=== PATIENT | female | born 1970 | race Caucasian/White ===

== ENCOUNTER 2018-12-03 06:44 | Day surgery (SDC) | payer BC ==
[~2018-12-03] VITALS: Ht 154.9 cm; Wt 68.2 kg
[~2018-12-03 06:44] MED LIST: IBUP400 PO; LOSA50 PO; Once Daily1 EACH; Percocet 5-3251 EACH PO
--- NOTE | 2018-12-03 06:59 | NUR ---
History, Chart, Medications and Allergies reviewed before start of procedure. Patient confirms NPO status and agrees with scheduled surgery. Reports taking all of colon prep with clear results. Patient States Post-Procedure ride home has been arranged with her , [place].
--- NOTE | 2018-12-03 07:30 | NUR ---
12/03/18 0770 Deangelo Poole History, Chart, Medications and Allergies reviewed before start of procedure.MONITOR INTACT WITH CONTINUOUS PULSE OXIMETRY AND INTERMITTENT BP.3-LEAD EKG REVIEWED WITH PHYSICIAN PRIOR TO START OF PROCEDURE.O2 VIA N/C INTACT THROUGHOUT SEDATION/PROCEDURE. Patient confirms NPO status and agrees with scheduled surgery.PATIENT DETERMINED TO BE ASA APPROPRIATE FOR PROPOFOL SEDATION PRIOR TO START OF PROCEDURE BY DR. HERNDON.
--- NOTE | 2018-12-03 08:41 | NUR ---
RECEIVED REPORT FROM ENDO RN ([place]). PT IS SLEEPING AT THIS TIME. VSS. MAN AT BEDSIDE.
--- NOTE | 2018-12-03 08:56 | NUR ---
PT IS AWAKE SITTING UP. DR HERNDON HAS SPOKEN TO PT. RN CALLED IN OMEPRAZOLE PER MD TO SAFEWAY IN [facility].
--- NOTE | 2018-12-03 09:10 | NUR ---
Discharge instructions reviewed with patient. Patient verbalizes understanding. Copy given to patient to take home. PT HAS NO QUESTIONS OR CONCERNS WITH D/C. PT TOLERATED WATER WO DIFF. PT STABLE. VSS. PT HAS D/C PAPERWORK. Patient States Post-Procedure ride home has been arranged. PT HAS ALL PERSONAL BELONGINGS. PT GETTING DRESSED. RX CALLED IN TO PHARMACY. PT AWARE NEED TO STOP TAKING IBUPROFEN AT HOME. Discharged via wheelchair to private car for ride home.
== END 2018-12-03 23:00 | disposition home or self-care (01) ==
LOC: ORSCMMR 06:44 → ORD 08:00 → ORSCMMR 08:00
PROVIDERS: Internal Medicine Gastroenterology
PROC: 0DB58ZX Excision of Esophagus, Via Natural or Artificial Opening Endoscopic, Diagnostic (ICD-10-PCS; principal; 2018-12-03 08:00)
PROC: 0DBE8ZX Excision of Large Intestine, Via Natural or Artificial Opening Endoscopic, Diagnostic (ICD-10-PCS; principal; 2018-12-03 08:00)
PROC: 0DB68ZX Excision of Stomach, Via Natural or Artificial Opening Endoscopic, Diagnostic (ICD-10-PCS; principal; 2018-12-03 08:00)
PROC: 0DB98ZX Excision of Duodenum, Via Natural or Artificial Opening Endoscopic, Diagnostic (ICD-10-PCS; principal; 2018-12-03 08:00)
DX: K92.1 Melena (principal); R19.7 Diarrhea, unspecified; I10 Essential (primary) hypertension; K21.9 Gastro-esophageal reflux disease without esophagitis; K25.9 Gastric ulcer, unspecified as acute or chronic, without hemorrhage or perforation; K57.30 Diverticulosis of large intestine without perforation or abscess without bleeding; K64.8 Other hemorrhoids
CPT/HCPCS: 88305; 88342; J2704; J7120

== ENCOUNTER 2020-01-18 11:32 | Inpatient (IN) | payer BC ==
[~2020-01-18] VITALS: Ht 154.9 cm; Wt 71.7 kg
[~2020-01-18 11:32] MED LIST changes: -LOSA50 PO
[2020-01-18 12:10] LABS: Calcium, Ionized (POC) 1.03 mmol/L (1.10-1.46); Chloride (POC) 104 mmol/L (98-108); Creatinine (POC) 0.5 mg/dL (0.6-1.0); Glucose (ISTAT POC) 120 mg/dL (70-99); Hemoglobin (POC) 13.6 g/dL (12.0-16.0); Potassium (POC) 3.7 mmol/L (3.5-5.5); Sodium (POC) 138 mmol/L (135-148); Total CO2 (POC) 22 mmol/L (21-32)
[2020-01-18 12:17] LABS: BASOPHILS ABSOLUTE AUTO 0.05 K/mm3 (0.00-0.23); BASOPHILS PERCENT AUTO 1 % (0-2); EOSINOPHILS ABSOLUTE AUTO 0.04 K/mm3 (0.00-0.68); EOSINOPHILS PERCENT AUTO 1 % (0-6); Hematocrit 36.5 % (33.0-51.0); Hemoglobin 12.3 g/dL (11.5-16.0); IMMATURE GRAN ABSOLUTE AUTO 0.01 K/mm3 (0.00-0.10); IMMATURE GRAN PERCENT AUTO 0 % (0-1); LYMPHOCYTES ABSOLUTE AUTO 2.04 K/mm3 (0.84-5.20); LYMPHOCYTES PERCENT AUTO 25 % (21-46); MONOCYTES ABSOLUTE AUTO 0.45 K/mm3 (0.16-1.47); MONOCYTES PERCENT AUTO 6 % (4-13); Mean Corpuscular HGB 32.3 pg (26.0-34.0); Mean Corpuscular HGB Conc 33.7 g/dL (31.5-36.5); Mean Corpuscular Volume 96 fL (80-100); Mean Platelet Volume 9.6 fL (9.1-12.4); NEUTROPHILS ABSOLUTE AUTO 5.49 K/mm3 (1.96-9.15); NEUTROPHILS PERCENT AUTO 68 % (41-73); Platelet Count 286 K/mm3 (150-400); RDW Coefficient Variation 12.1 % (11.7-14.2); RDW Standard Deviation 42.2 fL (35.1-46.3); Red Blood Cell Count 3.81 M/mm3 (3.80-5.20); White Blood Cell Count 8.08 K/mm3 (4.00-11.30)
[2020-01-18 12:33] LABS: International Normalized Ratio 0.98; Prothrombin Time Results 10.5 Sec (9.7-11.5)
[2020-01-18] MEDS ORDERED: KEFLEX500 MG PO (14:27)
[2020-01-18] MEDS ORDERED: Norco 5-325 Ta1 EACH PO (14:27)
[2020-01-18 17:20] LABS: Calcium, Ionized (POC) 1.03 mmol/L (1.10-1.46); Chloride (POC) 102 mmol/L (98-108); Creatinine (POC) 0.6 mg/dL (0.6-1.0); Glucose (ISTAT POC) 104 mg/dL (70-99); Hemoglobin (POC) 11.9 g/dL (12.0-16.0); Potassium (POC) 3.4 mmol/L (3.5-5.5); Sodium (POC) 138 mmol/L (135-148); Total CO2 (POC) 22 mmol/L (21-32)
[2020-01-18] MEDS ORDERED: TIZA4 PO (17:44)
[2020-01-18] MEDS ORDERED: LOSA50 PO (17:45)
[2020-01-18] MEDS ORDERED: PREG75 PO (17:49)
[2020-01-18] MEDS ORDERED: Aspir 8181 MG PO (17:50)
[2020-01-18] MEDS ORDERED: DICLOFENAC SOD100 G1 TOP (17:51)
[2020-01-18] MEDS ORDERED: Hair, Skin & N1 EACH PO (21:16)
[2020-01-19 05:33] LABS: BASOPHILS ABSOLUTE AUTO 0.02 K/mm3 (0.00-0.23); BASOPHILS PERCENT AUTO 0 % (0-2); EOSINOPHILS PERCENT AUTO 0 % (0-6); Hematocrit 31.3 % (33.0-51.0); Hemoglobin 10.4 g/dL (11.5-16.0); IMMATURE GRAN ABSOLUTE AUTO 0.03 K/mm3 (0.00-0.10); IMMATURE GRAN PERCENT AUTO 0 % (0-1); LYMPHOCYTES ABSOLUTE AUTO 1.84 K/mm3 (0.84-5.20); LYMPHOCYTES PERCENT AUTO 18 % (21-46); MONOCYTES ABSOLUTE AUTO 0.46 K/mm3 (0.16-1.47); MONOCYTES PERCENT AUTO 5 % (4-13); Mean Corpuscular HGB 32.4 pg (26.0-34.0); Mean Corpuscular HGB Conc 33.2 g/dL (31.5-36.5); Mean Corpuscular Volume 98 fL (80-100); Mean Platelet Volume 9.7 fL (9.1-12.4); NEUTROPHILS PERCENT AUTO 77 % (41-73); Platelet Count 266 K/mm3 (150-400); RDW Coefficient Variation 12.3 % (11.7-14.2); RDW Standard Deviation 44.5 fL (35.1-46.3); Red Blood Cell Count 3.21 M/mm3 (3.80-5.20); White Blood Cell Count 10.15 K/mm3 (4.00-11.30)
[2020-01-19 06:06] LABS: Anion Gap 10 mmol/L (6-16); Blood Urea Nitrogen 14 mg/dL (8-24); Bun/Creatinine Ratio 18.5 (12.0-20.0); CO2, Blood 24 mmol/L (21-32); Calcium, Blood 8.2 mg/dL (8.5-10.1); Chloride, Blood 103 mmol/L (98-108); Creatinine, Blood 0.76 mg/dL (0.40-1.00); Glomerular Filtration Rate >60 (60-); Glucose, Blood 140 mg/dL (70-99); Potassium, Blood 3.5 mmol/L (3.5-5.5); Sodium, Blood 137 mmol/L (136-145)
--- NOTE | 2020-01-19 06:06 | NUR ---
SHIFT SUMMARY PT WAS A NEW ADMIT DURING THE NIGHT, ARRIVING ON THE FLOOR AT 2049. SHE WAS ADMITTED FOR EPISTAXIS AND HYPOXIA. PT HAD A SEVERE NOSEBLEED AND RHINO ROCKETS WERE PLACED IN ED. ON ADMISSION, PT REPORTS THAT SHE CAN STILL FEEL DRAINAGE DOWN HER THROAT WITH THE RHINO ROCKETS IN PLACE. SHE IS ALSO REPORTING BURNING AND PRESSURE IN HER FACE. TYLENOL DID NOT RELIEVE HER PAIN, THOUGH HER PRN ZANAFLEX DID HELP FOR A FEW HOURS. SHE WAS MEDICATED TWICE WITH EACH MEDICATION. PT IS ON 2L OF O2 VIA NC IN THE MOUTH WHILE SLEEPING DUE TO DESATTING TO THE 80S WHEN ASLEEP. VITAL SIGNS OTHERWISE STABLE. PT WAS MEDICATED ONCE FOR NAUSEA WITH PRN PO ZOFRAN. NO C/O SOB. NO OTHER ACUTE CHANGES NOTED SINCE ADMISSION. WILL CONTINUE TO MONITOR AND TREAT PER EMAR UNTIL HAND OFF TO DAY SHIFT RN.
--- NOTE | 2020-01-19 08:12 | NUR ---
Throat soreness/Sinus pain and Headache Discussed with Dr. Medina over the phone regarding the above listed symptoms patient is complaining about. Received telephone order for Percocet 5/325 Q6H PRN and Chlorseptic spray as needed.
--- NOTE | 2020-01-19 11:17 | NUR ---
Inflammation in throat Discuss the complaint above with Dr. Medina, received a verbal order for one time does of Toradol 30 mg IV.
--- NOTE | 2020-01-19 11:26 | NUR ---
Continuous Biox Patient is taking narcotics and had an episode in the ER where she desaturated into the 80%'s O2. Discussed with Dr. Medina, Continuous biox ordered.
--- NOTE | 2020-01-19 14:50 | NUR ---
L side Rhinojet Removed Patient requesting rhinojet be removed from L nostril d/t discomfort and intense pressure/pain in sinus/throat/head despite medication for pain. L rhinojet appears to be partially exposed approximately [address] Medina informed. This RN assisted Dr. Medina at bedside with removal of rhinojet from L nostril. Approximately 8 cc air removed prior to pulling rhinojet out. Clear slimy mucus noted absent of blood/red color. Patient tolerated procedure well and stated some relief of pressure. No bleeding noted. Patient has been explained that rhinojet to R side will be kept in until ENT consult or up to 2-3 days before removal. Patient verbalized understanding.
--- NOTE | 2020-01-19 17:00 | NUR ---
Shift Summary A/Ox4, pleasant and cooperative with care. Up independently in room and to the bathroom. Calls appropriately for needs. Denies dizziness, chest pain, shortness of breath. Medicated for 6-8/10 headache, throat/sinus pain and pressure x 4 per EMAR. Unbearable pain became tolerable with pain meds, removal of rhinojet from L nostril, ice pack to left facial side, and heat pack to posterior neck. at bedside for a good portion of the day. Plan for ENT consult tomorrow (Monday) otherwise, no additional concern. Will report to oncoming RN.
[2020-01-20 05:24] LABS: BASOPHILS ABSOLUTE AUTO 0.04 K/mm3 (0.00-0.23); BASOPHILS PERCENT AUTO 1 % (0-2); EOSINOPHILS ABSOLUTE AUTO 0.09 K/mm3 (0.00-0.68); EOSINOPHILS PERCENT AUTO 2 % (0-6); Hemoglobin 10.1 g/dL (11.5-16.0); IMMATURE GRAN ABSOLUTE AUTO 0.02 K/mm3 (0.00-0.10); IMMATURE GRAN PERCENT AUTO 0 % (0-1); LYMPHOCYTES ABSOLUTE AUTO 2.46 K/mm3 (0.84-5.20); LYMPHOCYTES PERCENT AUTO 41 % (21-46); MONOCYTES ABSOLUTE AUTO 0.38 K/mm3 (0.16-1.47); MONOCYTES PERCENT AUTO 6 % (4-13); Mean Corpuscular HGB 32.6 pg (26.0-34.0); Mean Corpuscular HGB Conc 33.7 g/dL (31.5-36.5); Mean Corpuscular Volume 97 fL (80-100); Mean Platelet Volume 9.6 fL (9.1-12.4); NEUTROPHILS ABSOLUTE AUTO 3.01 K/mm3 (1.96-9.15); NEUTROPHILS PERCENT AUTO 50 % (41-73); Platelet Count 228 K/mm3 (150-400); RDW Coefficient Variation 12.3 % (11.7-14.2); RDW Standard Deviation 43.7 fL (35.1-46.3)
[2020-01-20 05:39] LABS: International Normalized Ratio 0.95; Prothrombin Time Results 10.2 Sec (9.7-11.5)
--- NOTE | 2020-01-20 05:56 | NUR ---
SHIFT SUMMARY PT IS A 49 Y/O FEMALE, ADMITTED FOR HYPOXIA. SHE CAME IN AFTER A SEVERE NOSE BLEED, RHINO ROCKET PLACED IN ED. PT REPORTS FEELING "BETTER", THAT THE PAIN IN HER THROAT AND ABD HAS STOPPED, THOUGH SHE STILL REPORTS PRESSURE AND PAIN IN HER FACE AND HEAD. SHE WAS MEDICATED FOR PAIN ONCE WITH PRN PERCOCET AND IV DILAUDID. NO C/O NAUSEA OR SOB. VITAL SIGNS STABLE. NO DESATTING NOTED PER CONTINUOUS BIOX WHILE PT SLEEPING. NO OTHER ACUTE CHANGES IN PT CONDITION NOTED. WILL CONTINUE TO MONITOR AND TREAT PER EMAR UNTIL HAND OFF TO DAY SHIFT RN.
[2020-01-20 06:05] LABS: Percent Saturation 21.6 % (15.0-50.0)
[2020-01-20 06:15] LABS: Alanine Aminotransfer (ALT/SGP 29 U/L (12-78); Albumin, Blood 3.5 g/dL (3.4-5.0); Albumin/Globulin Ratio 1.2 (0.8-1.8); Alk Phos 63 U/L (50-136); Anion Gap 6 mmol/L (6-16); Aspartate Aminotrans (AST/SGOT 17 U/L (12-37); Bilirubin, Total 0.4 mg/dL (0.1-1.0); Blood Urea Nitrogen 13 mg/dL (8-24); Bun/Creatinine Ratio 20.6 (12.0-20.0); C-REACTIVE PROTEIN, EXT RANGE 0.455 mg/dL (0.000-0.300); CO2, Blood 29 mmol/L (21-32); Calcium, Blood 8.4 mg/dL (8.5-10.1); Chloride, Blood 104 mmol/L (98-108); Creatinine, Blood 0.63 mg/dL (0.40-1.00); Globulin, Blood 2.9 g/dL (2.2-4.0); Glomerular Filtration Rate >60 (60-); Glucose, Blood 110 mg/dL (70-99); Sodium, Blood 139 mmol/L (136-145); Total Protein, Blood 6.4 g/dL (6.4-8.2)
--- NOTE | 2020-01-20 11:09 | NUR ---
SPOKE TO DR MOYA- HE IS AWARE OF THE CONSULT. PER DR MOYA PACKING SHOULD REMAIN IN PLACE FOR 72 HOURS BEFORE BEING REMOVED.
--- NOTE | 2020-01-20 16:54 | NUR ---
SHIFT SUMMARY- PT ALERT AND ORIENTED, SPOUSE HAS BEEN DOING SBA FOR HER SAFETY WHEN SHE GOES TO THE BATHROOM. IVF STARTED TODAY, DIET CHANGED TO FULL LIQUID. NPO AT MIDNIGHT SIPA AND CHIPS UNTIL BREAKFAST. PLAN IS FOR PT TO GO FOR PROCEDURE TOMORROW EVENING AT 1700 OR LATER. PT AWARE. PAIN SEEMS WELL MANAGED WITH 0.5MG IV DILAUDID. ZOFRAN CHANGED TO IV. SEEMS WELL MANAGED AT THIS TIME. WILL PASS ON IN BEDSIDE REPORT TO NIGHT RN.
--- NOTE | 2020-01-20 17:02 | NUR ---
CALLED DR CRAIG. PT HEADACHE HAS PERSISTED AFTER THE DILAUDID RECIEVED A OT ORDER FOR 50MG IMITREX. WILL ADMINISTER SP IT IS VERIFIED.
--- NOTE | 2020-01-21 04:05 | NUR ---
RADIO MECHANIC APPRENTICE SUMMARY A/OX4. INDEPENDENT TO BATHROOM. RHINO ROCKET INTACT IN R. NARE. C/O NECK PAIN, MEDICATED WITH MUSCLE RELAXER AND ICE PACK. PT HAS BEEN NPO SINCE MIDNIGHT WITH THE EXCEPTION OF SIPS AND CHIPS. PROCEDURE PLANNED FOR 1700 TODAY. NS CURRENTLY RUNNING. VSS. NO ACUTE CHANGES AT THIS TIME. BED IN LOWEST POSITION WITH CALL LIGHT IN REACH. WILL CONTINUE TO MONITOR AND REPORT TO ONCOMING RN.
[2020-01-21 05:22] LABS: BASOPHILS ABSOLUTE AUTO 0.03 K/mm3 (0.00-0.23); BASOPHILS PERCENT AUTO 1 % (0-2); EOSINOPHILS ABSOLUTE AUTO 0.08 K/mm3 (0.00-0.68); EOSINOPHILS PERCENT AUTO 1 % (0-6); Hematocrit 28.3 % (33.0-51.0); Hemoglobin 9.5 g/dL (11.5-16.0); IMMATURE GRAN ABSOLUTE AUTO 0.01 K/mm3 (0.00-0.10); IMMATURE GRAN PERCENT AUTO 0 % (0-1); LYMPHOCYTES ABSOLUTE AUTO 2.04 K/mm3 (0.84-5.20); LYMPHOCYTES PERCENT AUTO 36 % (21-46); MONOCYTES ABSOLUTE AUTO 0.44 K/mm3 (0.16-1.47); MONOCYTES PERCENT AUTO 8 % (4-13); Mean Corpuscular HGB 32.8 pg (26.0-34.0); Mean Corpuscular HGB Conc 33.6 g/dL (31.5-36.5); Mean Corpuscular Volume 98 fL (80-100); Mean Platelet Volume 9.2 fL (9.1-12.4); NEUTROPHILS ABSOLUTE AUTO 3.12 K/mm3 (1.96-9.15); NEUTROPHILS PERCENT AUTO 55 % (41-73); Platelet Count 212 K/mm3 (150-400); RDW Coefficient Variation 12.1 % (11.7-14.2); RDW Standard Deviation 43.6 fL (35.1-46.3); White Blood Cell Count 5.72 K/mm3 (4.00-11.30)
[2020-01-21 06:02] LABS: Alanine Aminotransfer (ALT/SGP 34 U/L (12-78); Albumin, Blood 3.2 g/dL (3.4-5.0); Albumin/Globulin Ratio 1.1 (0.8-1.8); Alk Phos 57 U/L (50-136); Anion Gap 7 mmol/L (6-16); Aspartate Aminotrans (AST/SGOT 24 U/L (12-37); Bilirubin, Total 0.4 mg/dL (0.1-1.0); Blood Urea Nitrogen 9 mg/dL (8-24); Bun/Creatinine Ratio 15.1 (12.0-20.0); CO2, Blood 27 mmol/L (21-32); Calcium, Blood 8.2 mg/dL (8.5-10.1); Chloride, Blood 106 mmol/L (98-108); Glomerular Filtration Rate >60 (60-); Glucose, Blood 106 mg/dL (70-99); Potassium, Blood 3.8 mmol/L (3.5-5.5); Sodium, Blood 140 mmol/L (136-145); Total Protein, Blood 6.2 g/dL (6.4-8.2)
--- NOTE | 2020-01-21 19:35 | NUR ---
SHIFT SUMMARY- PAIN HAS BEEN WELL MANAGED T/O THE DAY. PT LEFT FOR PROCEDURE AT 1730, AT THE BEDSIDE AND IS IN THE WAITING AREA NOW. PROCEDURE WAS SUPPOSED TO TAKE 1 HOUR. REPORT COMPLETED WITH NIGHT RN NARDA. PT NOT PRESENT FOR BEDSIDE REPORT.
--- NOTE | 2020-01-21 20:12 | NUR ---
POST OP REPORT FROM DREW PERDUERESAW TAILER. PATIENT BACK IN ROOM AND DREW RN REPORTS DR MOYA REPORTS TO CONTINUE DIET ORDER AND PREVIOUS ORDERS. SPOUSE PRESENT OUTSIDE ROOM AT THIS TIME UNTIL PATIENT BACK IN BED FROM BR.
--- NOTE | 2020-01-21 23:48 | NUR ---
DR PEMA MOYA CALLED TO CHECK ON POST STATUS SURGERY OF PATIENT BACK IN ROOM. VITALS GIVEN AND MENTATION AXOX 4 WITH SPOUSE IN ROOM. NO CONCERNS NOTED. DR MOYA REPORTS USE COLD COMPRESS NEEDED. NO NSAIDS OR TORADOL TO BE GIVEN. REPORTS DRESSING BELOW NARE CAN BE REMOVED; ONLY IN PLACE FOR MINIMAL DRAINAGE FOR SURGERY. DR MOYA REPORTS POSSIBLE DISCHARGE IN MORNING.
--- NOTE | 2020-01-22 03:07 | NUR ---
SHIFT SUMMARY PATIENT OUT FOR SURGERY AT SHIFT CHANGE. BACK IN ROOM AFTER CALL FROM SURGERY RN WITH POST OP REPORT. SPOUSE REPORTED PROCEDURE WENT WELL. PATIENT DENIES PAIN, SOB, AND N/V. AXOX 4 AND TWO ASSIST TO BSC WITH FWW/GAIT BELT. VSS/AFEBRILE. DR MOYA CALLED TO CHECK ON PATIENT AFTR SURGERY REPORTING TO HOLD NSAIDS AND TORADOL AND OK WITH PREVIOUS ORDERS PATIENT HAD. REPORTS COLD COMPRESS OK FOR PAIN MANAGEMENT. DR MOYA APPROVED A REGULAR DIET BUT HOSPITALIST ROEL TRUONG DENIED UNTIL SHE CAN RESEARCH WHY PATIENT WAS ON FULL LIQUID PRIOR TO SURGERY. SPOUSE PRESENT FOR A FEW HOURS AFTER SURGERY BEFORE LEAVING FOR EVENING. CALL LIGHT IN REACH. BED IN LOWEST POSITION. WILL CONTINUE TO MONITOR UNTIL DAY SHIFT NURSE ASSUMES CARE.
[2020-01-22] MEDS ORDERED: ACET325 PO (10:58)
[2020-01-22] MEDS ORDERED: FERSU300 PO (10:59)
[2020-01-22] MEDS ORDERED: DOCU100 PO (10:59)
--- NOTE | 2020-01-22 13:48 | NUR ---
DISCHARGE NOTE- PT WAS GIVEN VERBAL AND WRITTEN DISCHARGE INSTRUCTIONS AND ACKNOWLEDGED UNDERSTANDING OF THEM. HARD COPY SCRIPT FOR OXY PROVIDED TO PT. PT IV WAS DC'D PRIOR TO DISCHARGE. PT ESCORTED OUT BY THE GROOVER AND TURNER DECLINED WC ESCORT.
[2020-01-23 13:10] LABS: FACTOR VIII ACTIVITY 238 % (56-140); INTERPRETATION Note (.); VON WILLEBRAND FACTOR (VWF) AG 198 % (50-200); VWF ACTIVITY 203 % (50-200)
== END 2020-01-22 11:38 | disposition home or self-care (01) | DRG 151 ==
LOC: ER 11:32 → ERHOLD 19:52 → MEDS 20:51 → ERHOLD 20:51 → MEDS 01-19 13:50 → ERHOLD 01-19 17:10 → MEDS 01-19 17:16
PROVIDERS: Emergency Medicine; Internal Medicine; Otolaryngology; ADMIT Internal Medicine
PROC: 093K8ZZ Control Bleeding in Nasal Mucosa and Soft Tissue, Via Natural or Artificial Opening Endoscopic (ICD-10-PCS; principal; 2020-01-21 09:45)
DX: R04.0 Epistaxis (principal); D62 Acute posthemorrhagic anemia; Z87.891 Personal history of nicotine dependence; I10 Essential (primary) hypertension; M06.4 Inflammatory polyarthropathy; J32.9 Chronic sinusitis, unspecified
CPT/HCPCS: 30903; 36415; 70450; 70491; 80047; 80048; 80053; 82728; 83540; 83550; 84443; 85014; 85025; 85240; 85245; 85246; 85610; 85651; 85730; 86140; 93005; 93010; 94762; 96365; 96374-59; 96375; 96375-59; 96376; 96376-59; 99284-25; A9270; A9270-GY; G0008; G0378; J0171; J0696; J1100; J1170; J1885; J2250; J2270; J2405; J2704; J3010; J7030; Q2038; Q9967; U0003